=== PATIENT | male | born 1935 | race Caucasian/White ===

== ENCOUNTER 2022-03-02 18:43 | Inpatient (IN) ==
[2022-03-02] MEDS ORDERED: Iopamidol - 370 500 ML MLS IVP ONE (19:17)
[2022-03-02] MEDS ORDERED: Morphine Sulfate 2 MG/ML SYRINGE IVP ONE (19:31)
[2022-03-02 20:15] LABS: Basophils % 0.5 %; Eosinophils # 0.1 K/mcL (0.0-0.6); Eosinophils % 0.8 %; Hematocrit 39.6 % (37.5-50.1); Hemoglobin 13.3 g/dL (12.9-16.9); Immature Granulocytes % 0.5 % (0-4); Lymphocytes # 1.1 K/mcL (0.6-4.6); Lymphocytes % 13.1 %; Mean Corpuscular HGB Conc 33.6 g/dL (31.6-35.5); Mean Corpuscular Hemoglobin 32.2 pg (28.0-33.3); Mean Corpuscular Volume 95.9 fL (83.0-100.0); Monocytes # 0.5 K/mcL (0.0-1.3); Monocytes % 6.4 %; Neutrophils # 6.5 K/mcL (1.6-8.9); Platelet Count 218 K/mcL (140-400); Red Blood Count 4.13 M/mcL (4.19-5.50); Red Cell Distribution Width 14.1 % (11.5-14.5); Segmented Neutrophils % 78.7 %; White Blood Count 8.2 K/mcL (4.3-11.1)
[2022-03-02 20:16] LABS: Bilirubin,Urine Negative (Negative); Blood,Urine Negative (Negative); Clarity,Urine Clear (Clear); Color,Urine Colorless (Yellow); Glucose,Urine (UA) 30 mg/dL (Normal); Ketones,Urine 10 mg/dL (Negative); Leukocyte Esterase,Urine Negative (Negative); Mucus,Urine Few per lpf (None-Few); Nitrite,Urine Negative (Negative); Protein,Urine Negative (Neg-Trace); Urobilinogen,Urine Normal (Normal)
[2022-03-02 20:39] LABS: Alanine Aminotransferase 16 Units/L (7-52); Albumin 4.6 g/dL (3.5-5.7); Albumin/Globulin Ratio 1.4 (1.1-2.2); Alkaline Phosphatase 51 Units/L (34-104); Aspartate Amino Transferase 21 Units/L (13-39); BUN/Creatinine Ratio 14 (6-26); Bilirubin,Total 0.7 mg/dL (0.3-1.0); Blood Urea Nitrogen 14 mg/dL (8-23); Calcium 10.7 mg/dL (8.6-10.3); Carbon Dioxide 26 mEq/L (23-29); Chloride 95 mEq/L (98-107); Globulin 3.2 g/dL (2.4-3.5); Glucose 148 mg/dL (70-105); Lipase 11 Units/L (11-82); Osmolality,Calculated 277 (280-300); Potassium 3.9 mEq/L (3.5-5.1); Sodium 132 mEq/L (136-145); Total Protein 7.8 g/dL (6.4-8.9); Troponin I < 0.03 ng/mL (< 0.04)
[2022-03-02] MEDS ORDERED: *HR* HYDROmorphone (PF) 1 MG/ML SYRINGE IVP ONE (23:23)
[2022-03-02] MEDS ORDERED: Ondansetron 4 MG/2 ML VIAL IVP ONE (23:25)
[2022-03-03] MEDS ORDERED: Ondansetron 4 MG/2 ML VIAL IVP PRN (00:49)
[2022-03-03] MEDS ORDERED: Naloxone 0.4 MG/ML INJ IVP PRN (00:49)
[2022-03-03] MEDS ORDERED: D5% in Water 1,000 ML IVC PRN (00:53)
[2022-03-03] MEDS ORDERED: *HR* Dextrose 50 % in Water (Syg) 50 ML SYRINGE IVP PRN (00:53)
[2022-03-03] MEDS ORDERED: Dextrose Gel 15 GM/37.5 ML TUBE PO PRN ×2 (00:53)
[2022-03-03] MEDS ORDERED: Lidocaine Jelly 6ml 1 APPL/6 ML JEL.PF.APP TP ONE (01:20)
[2022-03-03] MEDS ORDERED: *HR* Metoprolol 5 MG/5 ML VIAL IVP ONE (01:41)
[2022-03-03 01:44] LABS: Basophils # 0.1 K/mcL (0.0-0.2); Basophils % 0.6 %; Eosinophils % 0.2 %; Hematocrit 39.6 % (37.5-50.1); Immature Granulocytes % 0.6 % (0-4); Lymphocytes # 0.7 K/mcL (0.6-4.6); Lymphocytes % 6.8 %; Mean Corpuscular HGB Conc 32.8 g/dL (31.6-35.5); Mean Corpuscular Hemoglobin 31.7 pg (28.0-33.3); Mean Corpuscular Volume 96.6 fL (83.0-100.0); Mean Platelet Volume 9.9 fL (9.4-12.4); Monocytes # 0.7 K/mcL (0.0-1.3); Monocytes % 6.6 %; Neutrophils # 8.6 K/mcL (1.6-8.9); Platelet Count 204 K/mcL (140-400); Red Cell Distribution Width 14.2 % (11.5-14.5); Segmented Neutrophils % 85.2 %; White Blood Count 10.1 K/mcL (4.3-11.1)
[2022-03-03 01:50] LABS: Estimated Average Glucose 134 mg/dl; Hemoglobin A1C 6.3 %
[2022-03-03 01:58] LABS: INR 1.1; Prothrombin Time 12.7 Seconds (9.4-12.1)
[2022-03-03 02:01] LABS: Calcium 10.2 mg/dL (8.6-10.3); Magnesium 1.5 mg/dL (1.6-2.6); Potassium 3.6 mEq/L (3.5-5.1)
[2022-03-03] MEDS ORDERED: Magnesium Sulfate 1 GM/102 ML PIGGYBACK IVPB ONE (02:13)
[2022-03-03] MEDS: Ringers Solution, Lactated 1,000 ML IVC SCH ×2 (02:52→12:45)
[2022-03-03] MEDS: Ketorolac 30 MG/ML VIAL IM PRN ×3 (03:28→19:17)
[2022-03-03] MEDS: Insulin LISPRO 300 UNITS/3 ML VIAL SUBQ SCH ×3 (06:43→18:39)
[2022-03-03] MEDS ORDERED: *HR* Labetalol 20 MG/4 ML SYRINGE IVP PRN (07:23)
[2022-03-04 03:24] LABS: Basophils % 0.2 %; Eosinophils # 0.1 K/mcL (0.0-0.6); Eosinophils % 1.3 %; Hematocrit 36.9 % (37.5-50.1); Hemoglobin 12.6 g/dL (12.9-16.9); Immature Granulocytes % 0.3 % (0-4); Lymphocytes % 16.2 %; Mean Corpuscular HGB Conc 34.1 g/dL (31.6-35.5); Mean Corpuscular Hemoglobin 32.2 pg (28.0-33.3); Mean Corpuscular Volume 94.4 fL (83.0-100.0); Mean Platelet Volume 10.2 fL (9.4-12.4); Monocytes # 0.8 K/mcL (0.0-1.3); Neutrophils # 4.1 K/mcL (1.6-8.9); Platelet Count 207 K/mcL (140-400); Red Blood Count 3.91 M/mcL (4.19-5.50); Red Cell Distribution Width 14.1 % (11.5-14.5)
[2022-03-04 03:42] LABS: Calcium 9.9 mg/dL (8.6-10.3); Magnesium 1.7 mg/dL (1.6-2.6); Potassium 3.7 mEq/L (3.5-5.1)
[2022-03-04] MEDS: Insulin LISPRO 300 UNITS/3 ML VIAL SUBQ SCH ×4 (04:47→18:23)
[2022-03-04] MEDS: Ringers Solution, Lactated 1,000 ML IVC SCH (12:38)
[2022-03-04] MEDS ORDERED: Chloraseptic Spray 177 ML BOTTLE MM PRN (12:47)
[2022-03-04] MEDS: Acetaminophen IV 500 MG/50 ML BAG IVPB PRN (16:39)
[2022-03-04] MEDS ORDERED: Acetaminophen IV 500 MG/50 ML BAG IVPB PRN (18:00)
[2022-03-05] MEDS: Insulin LISPRO 300 UNITS/3 ML VIAL SUBQ SCH ×5 (00:50→23:53)
[2022-03-05] MEDS: Ringers Solution, Lactated 1,000 ML IVC SCH ×3 (02:10→18:38)
[2022-03-05 04:38] LABS: Basophils % 0.5 %; Eosinophils # 0.1 K/mcL (0.0-0.6); Eosinophils % 0.8 %; Hematocrit 37.3 % (37.5-50.1); Hemoglobin 12.5 g/dL (12.9-16.9); Immature Granulocytes % 0.2 % (0-4); Lymphocytes # 1.2 K/mcL (0.6-4.6); Mean Corpuscular HGB Conc 33.5 g/dL (31.6-35.5); Mean Corpuscular Hemoglobin 32.2 pg (28.0-33.3); Mean Corpuscular Volume 96.1 fL (83.0-100.0); Mean Platelet Volume 10.4 fL (9.4-12.4); Monocytes % 15.2 %; Neutrophils # 4.2 K/mcL (1.6-8.9); Platelet Count 204 K/mcL (140-400); Red Blood Count 3.88 M/mcL (4.19-5.50); Red Cell Distribution Width 14.1 % (11.5-14.5); Segmented Neutrophils % 65.3 %; White Blood Count 6.5 K/mcL (4.3-11.1)
[2022-03-05 04:58] LABS: Calcium 9.7 mg/dL (8.6-10.3); Magnesium 1.7 mg/dL (1.6-2.6); Phosphorous 3.3 mg/dL (2.7-4.5); Potassium 3.5 mEq/L (3.5-5.1)
[2022-03-05] MEDS ORDERED: MethylPREDNISolone 40 MG/ML VIAL IVP ONE (08:35)
[2022-03-05] MEDS: Pantoprazole 40 MG VIAL IVP SCH (09:14)
[2022-03-05] MEDS ORDERED: *HR* FentaNYL (PF) 100 MCG/2 ML VIAL IVP STA (13:11)
[2022-03-05] MEDS ORDERED: Acetaminophen IV 1,000 MG/100 ML BAG IVPB ONE (14:07)
[2022-03-05] MEDS: Acetaminophen IV 500 MG/50 ML BAG IVPB PRN ×2 (14:44→22:29)
[2022-03-06 02:38] LABS: Basophils % 0.3 %; Hematocrit 40.9 % (37.5-50.1); Hemoglobin 13.8 g/dL (12.9-16.9); Immature Granulocytes % 0.2 % (0-4); Lymphocytes # 0.8 K/mcL (0.6-4.6); Mean Corpuscular HGB Conc 33.7 g/dL (31.6-35.5); Mean Corpuscular Hemoglobin 32.3 pg (28.0-33.3); Mean Corpuscular Volume 95.8 fL (83.0-100.0); Mean Platelet Volume 10.3 fL (9.4-12.4); Monocytes # 1.1 K/mcL (0.0-1.3); Monocytes % 17.1 %; Neutrophils # 4.3 K/mcL (1.6-8.9); Platelet Count 228 K/mcL (140-400); Red Blood Count 4.27 M/mcL (4.19-5.50); Red Cell Distribution Width 14.4 % (11.5-14.5); Segmented Neutrophils % 69.4 %; White Blood Count 6.3 K/mcL (4.3-11.1)
[2022-03-06 03:04] LABS: Calcium 11.1 mg/dL (8.6-10.3); Magnesium 1.9 mg/dL (1.6-2.6); Phosphorous 5.7 mg/dL (2.7-4.5); Potassium 4.3 mEq/L (3.5-5.1)
[2022-03-06] MEDS: Acetaminophen IV 500 MG/50 ML BAG IVPB PRN (05:34)
[2022-03-06] MEDS: Insulin LISPRO 300 UNITS/3 ML VIAL SUBQ SCH ×2 (05:35→18:30)
[2022-03-06] MEDS ORDERED: Lidocaine -MPF 1% 5 ML AMPUL INFILT ONE ×2 (08:54→16:32)
[2022-03-06] MEDS: Ringers Solution, Lactated 1,000 ML IVC SCH ×2 (09:18→18:12)
[2022-03-06] MEDS: Pantoprazole 40 MG VIAL IVP SCH (09:19)
[2022-03-06] MEDS ORDERED: Ketamine HCL *QUVA* 50mg (1mL) SYRINGE ONE ×2 (09:31→14:43)
[2022-03-06] MEDS ORDERED: *HR* Propofol 200 MG/20 ML VIAL IVP ONE (09:31)
[2022-03-06] MEDS ORDERED: *HR* Rocuronium Bromide 50 MG/5 ML VIAL ONE ×2 (09:31→12:59)
[2022-03-06] MEDS ORDERED: Lidocaine -MPF 2% 5 ML VIAL ONE (09:31)
[2022-03-06] MEDS ORDERED: Lidocaine HCL 4 ML Topical Solution (Laryng-O-Jet Kit Sterile Pak) TP ONE (09:31)
[2022-03-06] MEDS ORDERED: *HR* Phenylephrine 10 MG/ML VIAL ONE (09:31)
[2022-03-06] MEDS ORDERED: *HR* FentaNYL (PF) 100 MCG/2 ML VIAL ONE (09:31)
[2022-03-06] MEDS ORDERED: *HR* Magnesium Sulfate 1 GM/2 ML VIAL ONE ×2 (09:31→15:59)
[2022-03-06] MEDS ORDERED: Ondansetron 4 MG/2 ML VIAL ONE (09:31)
[2022-03-06] MEDS ORDERED: Acetaminophen IV 1,000 MG/100 ML BAG IVPB ONE ×2 (11:06→16:32)
[2022-03-06] MEDS ORDERED: *HR* HYDROmorphone (PF) 1 MG/ML SYRINGE IVP PRN ×2 (11:06→16:32)
[2022-03-06] MEDS ORDERED: Pregabalin 75 MG CAPSULE PO ONE ×2 (11:06→16:32)
[2022-03-06] MEDS ORDERED: *HR* OxyCODONE Immed Rel 5 MG TABLET PO PRN ×2 (11:06→16:32)
[2022-03-06] MEDS ORDERED: *HR* HYDROmorphone 2 MG TABLET PO PRN ×2 (11:06→16:32)
[2022-03-06] MEDS ORDERED: Famotidine 20 MG/2 ML VIAL IVP ONE ×2 (11:06→16:32)
[2022-03-06] MEDS ORDERED: *HR* Labetalol 20 MG/4 ML SYRINGE IVP PRN ×3 (11:06→16:32)
[2022-03-06] MEDS ORDERED: D10% in Water 500 ML IVC PRN ×2 (11:13→16:32)
[2022-03-06] MEDS ORDERED: CefOXitin 2,000 MG VIAL ONE ×2 (12:44→14:39)
[2022-03-06] MEDS ORDERED: Sugammadex Sodium 200 MG/2 ML VIAL IV ONE (15:10)
[2022-03-06] MEDS ORDERED: *HR* HYDROMORPHONE 2 MG/ML VIAL ONE (15:26)
[2022-03-06] MEDS ORDERED: D5% in Water 1,000 ML IVC PRN (16:32)
[2022-03-06] MEDS ORDERED: Chloraseptic Spray 177 ML BOTTLE MM PRN (16:32)
[2022-03-06] MEDS ORDERED: Ondansetron 4 MG/2 ML VIAL IVP PRN (16:32)
[2022-03-06] MEDS ORDERED: Dextrose Gel 15 GM/37.5 ML TUBE PO PRN ×2 (16:32)
[2022-03-06] MEDS ORDERED: Acetaminophen IV 500 MG/50 ML BAG IVPB PRN (16:32)
[2022-03-06] MEDS ORDERED: *HR* Dextrose 50 % in Water (Syg) 50 ML SYRINGE IVP PRN (16:32)
[2022-03-06] MEDS ORDERED: Naloxone 0.4 MG/ML INJ IVP PRN (16:32)
[2022-03-06] MEDS ORDERED: Clinimix 5%-20% SOLUTION 2,000 ML with MVI, adult with vitamin K 10 ML, Sodium Acetat... IVC SCH ×2 (17:00)
[2022-03-06] MEDS ORDERED: Fat Emulsion 250 ML IVPB SCH (17:00)
[2022-03-06] MEDS: Fat Emulsion 250 ML IVPB SCH (18:14)
[2022-03-07] MEDS: Insulin LISPRO 300 UNITS/3 ML VIAL SUBQ SCH ×5 (01:10→20:55)
[2022-03-07] MEDS: Ringers Solution, Lactated 1,000 ML IVC SCH ×4 (04:21→18:52)
[2022-03-07] MEDS ORDERED: Ipratropium/Albuterol Neb 3 ML IH ONE (06:01)
[2022-03-07] MEDS ORDERED: Acetaminophen IV 1,000 MG/100 ML BAG IVPB SCH (06:01)
[2022-03-07] MEDS ORDERED: *HR* HYDROmorphone 2 MG TABLET PO ONE (06:04)
[2022-03-07 06:15] LABS: Basophils % 0.4 %; Hematocrit 35.8 % (37.5-50.1); Immature Granulocytes % 0.4 % (0-4); Lymphocytes # 0.6 K/mcL (0.6-4.6); Lymphocytes % 11.1 %; Mean Corpuscular HGB Conc 32.1 g/dL (31.6-35.5); Mean Corpuscular Hemoglobin 32.1 pg (28.0-33.3); Mean Platelet Volume 10.7 fL (9.4-12.4); Monocytes # 0.9 K/mcL (0.0-1.3); Monocytes % 15.2 %; Platelet Count 207 K/mcL (140-400); Red Blood Count 3.58 M/mcL (4.19-5.50); Red Cell Distribution Width 14.1 % (11.5-14.5); Segmented Neutrophils % 72.9 %; White Blood Count 5.7 K/mcL (4.3-11.1)
[2022-03-07 06:27] LABS: Hemoglobin 11.5 g/dL (12.9-16.9); Neutrophils # 4.2 K/mcL (1.6-8.9)
[2022-03-07 06:44] LABS: Platelet Estimate Normal (Normal)
[2022-03-07 07:04] LABS: Albumin 3.3 g/dL (3.5-5.7); Albumin/Globulin Ratio 1.4 (1.1-2.2); Bilirubin,Total 1.1 mg/dL (0.3-1.0); Calcium 9.2 mg/dL (8.6-10.3); Globulin 2.4 g/dL (2.4-3.5); Phosphorous 3.1 mg/dL (2.7-4.5); Potassium 3.7 mEq/L (3.5-5.1); Total Protein 5.7 g/dL (6.4-8.9)
[2022-03-07] MEDS: Pantoprazole 40 MG VIAL IVP SCH (09:15)
[2022-03-07] MEDS ORDERED: Ondansetron 4 MG/2 ML VIAL IVP PRN (09:18)
[2022-03-07] MEDS: Acetaminophen IV 1,000 MG/100 ML BAG IVPB SCH ×2 (16:47→20:59)
[2022-03-07] MEDS ORDERED: Clinimix E 5%-20% SOLUTION 2,000 ML with MVI, adult with vitamin K 10 ML IVC SCH (17:00)
[2022-03-07] MEDS: *HR* Heparin 5,000 UNIT/ML VIAL SQ SCH (17:04)
[2022-03-07] MEDS: Insulin DETEMIR 100 UNIT/ML X5UNITS SUBQ SCH (20:55)
[2022-03-08] MEDS: Insulin LISPRO 300 UNITS/3 ML VIAL SUBQ SCH ×6 (00:39→22:12)
[2022-03-08] MEDS: Acetaminophen IV 1,000 MG/100 ML BAG IVPB SCH ×4 (04:11→22:12)
[2022-03-08 05:20] LABS: Albumin 3.1 g/dL (3.5-5.7); Albumin/Globulin Ratio 1.2 (1.1-2.2); Bilirubin,Total 0.7 mg/dL (0.3-1.0); Calcium 9.1 mg/dL (8.6-10.3); Globulin 2.5 g/dL (2.4-3.5); Potassium 3.2 mEq/L (3.5-5.1); Total Protein 5.6 g/dL (6.4-8.9)
[2022-03-08] MEDS: *HR* Heparin 5,000 UNIT/ML VIAL SQ SCH ×2 (05:24→17:09)
[2022-03-08] MEDS ORDERED: Potassium Chloride Elixir 20 MEQ/15 ML UDC PO ONE (07:45)
[2022-03-08] MEDS: Pantoprazole 40 MG VIAL IVP SCH (11:49)
[2022-03-08] MEDS ORDERED: Clinimix E 5%-20% SOLUTION 2,000 ML with MVI, adult with vitamin K 10 ML IVC SCH (17:00)
[2022-03-08] MEDS: Fat Emulsion 250 ML IVPB SCH (17:08)
[2022-03-08] MEDS: Ringers Solution, Lactated 1,000 ML IVC SCH (17:08)
[2022-03-08] MEDS: Insulin DETEMIR 100 UNIT/ML X5UNITS SUBQ SCH (22:12)
[2022-03-09] MEDS: Insulin LISPRO 300 UNITS/3 ML VIAL SUBQ SCH ×6 (01:17→21:25)
[2022-03-09] MEDS: Acetaminophen IV 1,000 MG/100 ML BAG IVPB SCH ×4 (04:40→21:27)
[2022-03-09] MEDS: *HR* Heparin 5,000 UNIT/ML VIAL SQ SCH ×2 (05:42→17:23)
[2022-03-09 06:26] LABS: Basophils % 0.4 %; Eosinophils # 0.2 K/mcL (0.0-0.6); Eosinophils % 6.9 %; Hematocrit 30.1 % (37.5-50.1); Immature Granulocytes % 0.8 % (0-4); Lymphocytes # 0.7 K/mcL (0.6-4.6); Lymphocytes % 27.5 %; Mean Corpuscular HGB Conc 31.9 g/dL (31.6-35.5); Mean Corpuscular Hemoglobin 31.7 pg (28.0-33.3); Mean Corpuscular Volume 99.3 fL (83.0-100.0); Mean Platelet Volume 10.7 fL (9.4-12.4); Monocytes # 0.4 K/mcL (0.0-1.3); Monocytes % 14.5 %; Neutrophils # 1.3 K/mcL (1.6-8.9); Platelet Count 149 K/mcL (140-400); Red Blood Count 3.03 M/mcL (4.19-5.50); Red Cell Distribution Width 13.6 % (11.5-14.5); Segmented Neutrophils % 49.9 %
[2022-03-09 06:38] LABS: Hemoglobin 9.6 g/dL (12.9-16.9); White Blood Count 2.6 K/mcL (4.3-11.1)
[2022-03-09 06:46] LABS: Albumin 2.9 g/dL (3.5-5.7); Albumin/Globulin Ratio 1.1 (1.1-2.2); Bilirubin,Total 0.5 mg/dL (0.3-1.0); Calcium 9.1 mg/dL (8.6-10.3); Globulin 2.7 g/dL (2.4-3.5); Magnesium 1.7 mg/dL (1.6-2.6); Phosphorous 1.8 mg/dL (2.7-4.5); Total Protein 5.6 g/dL (6.4-8.9)
[2022-03-09] MEDS ORDERED: Potassium Phosphate 44 MEQ in 0.9 % Sodium Chloride 250 ML IVPB ONE ×2 (07:30→08:30)
[2022-03-09] MEDS: Pantoprazole 40 MG VIAL IVP SCH (08:14)
[2022-03-09] MEDS ORDERED: Clinimix E 5%-20% SOLUTION 2,000 ML with MVI, adult with vitamin K 10 ML IVC SCH (17:00)
[2022-03-09] MEDS: Insulin DETEMIR 100 UNIT/ML X5UNITS SUBQ SCH (21:25)
[2022-03-10] MEDS: Insulin LISPRO 300 UNITS/3 ML VIAL SUBQ SCH ×6 (01:14→22:58)
[2022-03-10] MEDS: Acetaminophen IV 1,000 MG/100 ML BAG IVPB SCH ×4 (04:36→22:55)
[2022-03-10] MEDS: *HR* Heparin 5,000 UNIT/ML VIAL SQ SCH ×2 (05:53→18:27)
[2022-03-10] MEDS: Pantoprazole 40 MG VIAL IVP SCH (09:26)
[2022-03-10 12:42] LABS: Eosinophils # 0.2 K/mcL (0.0-0.6); Hematocrit 30.2 % (37.5-50.1); Hemoglobin 9.8 g/dL (12.9-16.9); Mean Corpuscular HGB Conc 32.5 g/dL (31.6-35.5); Mean Corpuscular Hemoglobin 32.2 pg (28.0-33.3); Mean Corpuscular Volume 99.3 fL (83.0-100.0); Mean Platelet Volume 10.2 fL (9.4-12.4); Platelet Count 174 K/mcL (140-400); Red Blood Count 3.04 M/mcL (4.19-5.50); Red Cell Distribution Width 13.6 % (11.5-14.5)
[2022-03-10 12:44] LABS: White Blood Count 4.7 K/mcL (4.3-11.1)
[2022-03-10 12:59] LABS: Albumin/Globulin Ratio 1.1 (1.1-2.2); Bilirubin,Total 0.7 mg/dL (0.3-1.0); Globulin 2.8 g/dL (2.4-3.5); Magnesium 1.7 mg/dL (1.6-2.6); Phosphorous 2.4 mg/dL (2.7-4.5); Potassium 3.5 mEq/L (3.5-5.1); Total Protein 5.8 g/dL (6.4-8.9)
[2022-03-10 13:00] LABS: Lymphocytes # 1.5 K/mcL (0.6-4.6); Monocytes # 0.2 K/mcL (0.0-1.3); Neutrophils # 2.8 K/mcL (1.6-8.9)
[2022-03-10 13:01] LABS: Platelet Estimate Normal (Normal)
[2022-03-10] MEDS ORDERED: Clinimix E 5%-20% SOLUTION 2,000 ML with MVI, adult with vitamin K 10 ML IVC SCH (17:00)
[2022-03-10] MEDS: Insulin DETEMIR 100 UNIT/ML X5UNITS SUBQ SCH (22:57)
[2022-03-11] MEDS: Insulin LISPRO 300 UNITS/3 ML VIAL SUBQ SCH ×6 (03:03→21:34)
[2022-03-11 05:52] LABS: Basophils % 0.5 %; Eosinophils # 0.2 K/mcL (0.0-0.6); Eosinophils % 4.2 %; Hematocrit 28.1 % (37.5-50.1); Lymphocytes # 1.1 K/mcL (0.6-4.6); Lymphocytes % 26.8 %; Mean Platelet Volume 10.3 fL (9.4-12.4); Monocytes # 0.5 K/mcL (0.0-1.3); Monocytes % 12.9 %; Neutrophils # 2.1 K/mcL (1.6-8.9); Platelet Count 175 K/mcL (140-400); Red Blood Count 2.81 M/mcL (4.19-5.50); Red Cell Distribution Width 13.4 % (11.5-14.5); Segmented Neutrophils % 51.6 %
[2022-03-11 06:18] LABS: Albumin 2.9 g/dL (3.5-5.7); Bilirubin,Total 0.6 mg/dL (0.3-1.0); Globulin 2.8 g/dL (2.4-3.5); Magnesium 1.8 mg/dL (1.6-2.6); Phosphorous 2.9 mg/dL (2.7-4.5); Potassium 3.4 mEq/L (3.5-5.1); Total Protein 5.7 g/dL (6.4-8.9)
[2022-03-11 06:32] LABS: Hypochromasia Present (Not Present); Platelet Estimate Normal (Normal)
[2022-03-11] MEDS: *HR* Heparin 5,000 UNIT/ML VIAL SQ SCH ×2 (06:58→17:33)
[2022-03-11] MEDS ORDERED: Potassium Chloride Elixir 20 MEQ/15 ML UDC PO ONE (08:14)
[2022-03-11] MEDS: Acetaminophen IV 1,000 MG/100 ML BAG IVPB SCH ×2 (08:50→09:17)
[2022-03-11] MEDS: Pantoprazole 40 MG VIAL IVP SCH (09:17)
[2022-03-11] MEDS ORDERED: Clinimix E 5%-20% SOLUTION 2,000 ML with MVI, adult with vitamin K 10 ML IVC SCH (17:00)
[2022-03-11] MEDS: Fat Emulsion 250 ML IVPB SCH (17:27)
[2022-03-11] MEDS: Acetaminophen 325 MG TABLET PO SCH ×2 (17:33→21:59)
[2022-03-11] MEDS: Insulin DETEMIR 100 UNIT/ML X5UNITS SUBQ SCH (22:02)
[2022-03-12] MEDS: Insulin LISPRO 300 UNITS/3 ML VIAL SUBQ SCH ×4 (00:18→13:54)
[2022-03-12] MEDS: Acetaminophen 325 MG TABLET PO SCH ×2 (05:47→09:59)
[2022-03-12] MEDS: *HR* Heparin 5,000 UNIT/ML VIAL SQ SCH (05:49)
[2022-03-12 06:45] LABS: Eosinophils # 0.1 K/mcL (0.0-0.6); Hematocrit 29.2 % (37.5-50.1); Hemoglobin 9.3 g/dL (12.9-16.9); Mean Corpuscular HGB Conc 31.8 g/dL (31.6-35.5); Mean Corpuscular Hemoglobin 31.8 pg (28.0-33.3); Mean Platelet Volume 10.3 fL (9.4-12.4); Platelet Count 189 K/mcL (140-400); Red Blood Count 2.92 M/mcL (4.19-5.50); Red Cell Distribution Width 13.5 % (11.5-14.5); White Blood Count 5.1 K/mcL (4.3-11.1)
[2022-03-12 07:08] LABS: Monocytes # 0.7 K/mcL (0.0-1.3); Neutrophils # 2.1 K/mcL (1.6-8.9); Platelet Estimate Normal (Normal); Reactive Lymphocytes Present (Not Present)
[2022-03-12 07:09] LABS: Hypochromasia Present (Not Present)
[2022-03-12 07:11] LABS: Albumin 2.9 g/dL (3.5-5.7); Bilirubin,Total 0.7 mg/dL (0.3-1.0); Calcium 8.9 mg/dL (8.6-10.3); Globulin 2.8 g/dL (2.4-3.5); Magnesium 1.7 mg/dL (1.6-2.6); Phosphorous 2.9 mg/dL (2.7-4.5); Potassium 3.9 mEq/L (3.5-5.1); Total Protein 5.7 g/dL (6.4-8.9)
[2022-03-12 08:01] VITALS: BP 135/78; PULSE 84; TEMP 97.8; O2SAT 98
[2022-03-12] MEDS ORDERED: Gabapentin 300 MG CAPSULE PO SCH (09:00)
[2022-03-12] MEDS ORDERED: ENZALUTAMIDE 40 MG PO SCH (09:00)
== END 2022-03-12 14:32 | disposition home health service (06) | DRG 337 ==
LOC: 3ANU 18:43 → EMEROOARM 18:43 → SUATTDRO 03-03 00:14 → 3ANU 03-03 00:40 → SUATTDRO 03-04 07:51
PROVIDERS: ADMIT Student in an Organized Health Care Education/Training Program; ATTEND Internal Medicine